=== PATIENT | female | born 1985 | race Two or more races ===

== ENCOUNTER 2021-07-22 13:52 | Inpatient (IN) | payer BC, OTHER ==
[~2021-07-22] VITALS: Ht 167.6 cm; Wt 115.0 kg
[2021-07-22] MEDS ORDERED: ONDANSETRON ODT 4 MG TAB PO ONE (14:15)
[2021-07-22 14:44] LABS: Basophils # (auto) 0 10 ^3/uL (0-0.2); Basophils % (auto) 0.5 % (0.0-2.0); Eosinophils # (auto) 0.1 10 ^3/uL (0-0.8); Eosinophils % (auto) 0.6 % (0.0-7.0); Hematocrit 37.1 % (36.0-46.0); Hemoglobin 12.2 g/dL (12.2-16.2); Lymphocytes # (auto) 1.9 10 ^3/uL (0.4-5.4); Lymphocytes % (auto) 18.3 % (10.0-50.0); Mean Corpuscular Hemoglobin 25.5 pg (28.0-32.0); Mean Corpuscular Hgb Conc. 32.9 g/dL (32.0-36.0); Mean Corpuscular Volume 77.7 fL (80.0-100.0); Monocytes # (auto) 0.6 10 ^3/uL (0-1.3); Monocytes % (auto) 6.1 % (0.0-12.0); Neutrophils # (auto) 7.8 10 ^3/uL (1.6-8.6); Neutrophils % (auto) 74.5 % (37.0-80.0); Nucleated Red Blood Cells % 0.1 %; Red Blood Cells 4.78 10^6/uL (4.0-5.20); Red Cell Distribution Width 15.3 % (11.8-14.3); White Blood Cell 10.5 10^3/uL (4.4-10.8)
[2021-07-22 14:57] LABS: Urine Bacteria FEW /hpf (None Seen); Urine Blood Negative /uL (Negative); Urine Hyaline Cast FEW /lpf (0 - 2); Urine Mucus FEW (None Seen); Urine Specific Gravity 1.021 (1.001-1.035); Urine WBC 89 /hpf (0 - 5)
[2021-07-22 14:57] LABS: Calcium 9.8 mg/dL (8.5-10.1); Potassium 4.3 mmol/L (3.5-5.1)
[2021-07-22 15:00] LABS: BUN/Creatinine Ratio 14.5; Bilirubin, Total 0.4 mg/dL (0.2-1.0); Total Protein 7.2 g/dL (6.4-8.2)
[2021-07-22] MEDS ORDERED: PANTOPRAZOLE 40 MG/10 ML VIAL INJ IV ONE (15:30)
[2021-07-22] MEDS ORDERED: ONDANSETRON HCL 4 MG/2 ML VIAL IV ONE (15:30)
[2021-07-22] MEDS ORDERED: MORPHINE SULFATE 4 MG/ML SYR/VIAL IV ONE (15:30)
[2021-07-22] MEDS ORDERED: cefTRIAXone 1GM/50ML D5W 50 ML IV ONE (16:00)
[2021-07-22] MEDS ORDERED: SODIUM CHLORIDE 0.9% 1,000 ML IV SCH (21:30)
[2021-07-22] MEDS: metroNIDAZOLE 500MG/100ML 100 ML IV SCH (22:24)
[2021-07-23] MEDS: MORPHINE SULFATE INJECTION 2 MG/ML SYRG IV PRN ×5 (00:12→21:46)
[2021-07-23] MEDS: ONDANSETRON HCL 4 MG/2 ML VIAL IV PRN ×2 (00:13→14:45)
[2021-07-23] MEDS ORDERED: NORPTMEDS (06:45)
[2021-07-23] MEDS: metroNIDAZOLE 500MG/100ML 100 ML IV SCH ×3 (06:49→21:45)
[2021-07-23 09:00] VITALS: BP 156/90
[2021-07-23 09:30] LABS: INR 1.05 (0.9-1.15); Partial Thromboplastin Time 27.9 sec (23.6-33.0)
[2021-07-23] MEDS: PANTOPRAZOLE 40 MG/10 ML VIAL INJ IV SCH (11:28)
[2021-07-23] MEDS: cefTRIAXone 1GM/50ML D5W 50 ML IV SCH (11:30)
[2021-07-23 11:52] LABS: Basophils # (auto) 0 10 ^3/uL (0-0.2); Hemoglobin 12.2 g/dL (12.2-16.2)
[2021-07-23 11:55] LABS: Basophils % (auto) 0.5 % (0.0-2.0); Eosinophils # (auto) 0 10 ^3/uL (0-0.8); Eosinophils % (auto) 0.4 % (0.0-7.0); Hematocrit 36.9 % (36.0-46.0); Lymphocytes # (auto) 1.3 10 ^3/uL (0.4-5.4); Lymphocytes % (auto) 13.4 % (10.0-50.0); Mean Corpuscular Hemoglobin 25.6 pg (28.0-32.0); Mean Corpuscular Hgb Conc. 33.1 g/dL (32.0-36.0); Mean Corpuscular Volume 77.4 fL (80.0-100.0); Monocytes # (auto) 0.7 10 ^3/uL (0-1.3); Monocytes % (auto) 7.1 % (0.0-12.0); Neutrophils # (auto) 7.9 10 ^3/uL (1.6-8.6); Neutrophils % (auto) 78.6 % (37.0-80.0); Red Blood Cells 4.77 10^6/uL (4.0-5.20)
[2021-07-23 12:20] LABS: Albumin 3.5 g/dL (3.4-5.0); Calcium 9.3 mg/dL (8.5-10.1); Potassium 4.4 mmol/L (3.5-5.1)
[2021-07-23 12:25] LABS: BUN/Creatinine Ratio 10.7; Bilirubin, Total 0.6 mg/dL (0.2-1.0); Total Protein 6.6 g/dL (6.4-8.2)
[2021-07-23 13:00] VITALS: BP 128/89
[2021-07-23 17:00] VITALS: BP 153/75
[2021-07-23 22:00] VITALS: BP 137/77
[2021-07-23] MEDS: D5W/LACTATED RINGERS 1,000 ML IV SCH ×2 (23:30→23:50)
[2021-07-24] MEDS: metroNIDAZOLE 500MG/100ML 100 ML IV SCH ×3 (05:38→22:03)
[2021-07-24] MEDS: MORPHINE SULFATE INJECTION 2 MG/ML SYRG IV PRN ×3 (05:55→19:07)
[2021-07-24] MEDS ORDERED: ceFAZolin 1GM/50ML 100 ML IV ONE (08:27)
[2021-07-24] MEDS ORDERED: ceFAZolin 1GM/50ML 50 ML IV ONE (08:31)
[2021-07-24] MEDS ORDERED: NEOSTIGMINE 1 MG/ML INJ (10mg/10ML VIAL) ONE (08:44)
[2021-07-24] MEDS ORDERED: DexAMETHasone SOD PHOS 10MG/1ML VIAL INJ ONE (08:44)
[2021-07-24] MEDS ORDERED: fentaNYL CITRATE 100 MCG/2 ML VL ONE (08:44)
[2021-07-24] MEDS ORDERED: ONDANSETRON HCL 4 MG/2 ML VIAL ONE (08:44)
[2021-07-24] MEDS ORDERED: GLYCOPYRROLATE 0.2 MG/ML 1ML VIAL ONE (08:44)
[2021-07-24] MEDS ORDERED: PROPOFOL 10 MG/ML 20 ML IV ONE (08:44)
[2021-07-24] MEDS ORDERED: MIDAZOLAM HCL 2MG/2ML 2ml VIAL (1mg/ml) ONE (08:44)
[2021-07-24] MEDS ORDERED: ROCURONIUM 10MG/ML 10ML VIAL IV ONE (08:44)
[2021-07-24] MEDS ORDERED: MEPERIDINE HCL (25 MG/ML) 1ML VIAL ONE (08:44)
[2021-07-24] MEDS ORDERED: METOCLOPRAMIDE HCL 5MG/ml INJ 2ml VIAL IV PRN (08:45)
[2021-07-24] MEDS ORDERED: HYDROmorphone HCL 2 MG/ML VL IV PRN (08:45)
[2021-07-24] MEDS ORDERED: KETOROLAC TROMETH 30 MG/ML 1ML VIAL IV ONE (08:45)
[2021-07-24] MEDS ORDERED: MORPHINE SULFATE 4 MG/ML SYR/VIAL IV PRN (08:45)
[2021-07-24] MEDS: cefTRIAXone 1GM/50ML D5W 50 ML IV SCH (09:00)
[2021-07-24] MEDS: PANTOPRAZOLE 40 MG/10 ML VIAL INJ IV SCH (10:00)
[2021-07-24 12:30] VITALS: BP 136/74
[2021-07-24] MEDS: D5W/LACTATED RINGERS 1,000 ML IV SCH (13:29)
[2021-07-24 17:00] VITALS: BP 141/93
[2021-07-24 20:00] VITALS: BP 156/96
[2021-07-25] MEDS: D5W/LACTATED RINGERS 1,000 ML IV SCH (02:30)
[2021-07-25 05:00] VITALS: BP 134/62
[2021-07-25] MEDS: MORPHINE SULFATE INJECTION 2 MG/ML SYRG IV PRN (05:02)
[2021-07-25] MEDS: metroNIDAZOLE 500MG/100ML 100 ML IV SCH (05:28)
[2021-07-25 06:36] LABS: Eosinophils # (auto) 0 10 ^3/uL (0-0.8); Lymphocytes # (auto) 1.2 10 ^3/uL (0.4-5.4); Monocytes # (auto) 1.2 10 ^3/uL (0-1.3); Red Blood Cells 4.61 10^6/uL (4.0-5.20)
[2021-07-25 06:39] LABS: Basophils # (auto) 0.1 10 ^3/uL (0-0.2); Basophils % (auto) 0.4 % (0.0-2.0); Hematocrit 35.9 % (36.0-46.0); Hemoglobin 11.7 g/dL (12.2-16.2); Mean Corpuscular Hemoglobin 25.4 pg (28.0-32.0); Mean Corpuscular Hgb Conc. 32.8 g/dL (32.0-36.0); Mean Corpuscular Volume 77.7 fL (80.0-100.0); Monocytes % (auto) 9.1 % (0.0-12.0); Neutrophils % (auto) 81.5 % (37.0-80.0); Red Cell Distribution Width 15.1 % (11.8-14.3); White Blood Cell 13.5 10^3/uL (4.4-10.8)
[2021-07-25 09:00] VITALS: BP 134/86
[2021-07-25] MEDS ORDERED: PANT40TA2 PO (10:00)
[2021-07-25] MEDS ORDERED: LEVO-28 PO (10:00)
[2021-07-25] MEDS ORDERED: METR500T PO (10:00)
[2021-07-25] MEDS ORDERED: ONDA-144 PO (10:00)
[2021-07-25] MEDS: PANTOPRAZOLE 40 MG/10 ML VIAL INJ IV SCH (10:11)
[2021-07-25] MEDS: cefTRIAXone 1GM/50ML D5W 50 ML IV SCH (10:11)
== END 2021-07-25 12:00 | disposition home or self-care (01) | DRG 418 ==
LOC: ER 13:52 → OVERFLOW 21:21 → WEST WING 07-23 03:00
PROVIDERS: ADMIT Nurse Practitioner; ATTEND Internal Medicine Nephrology
PROC: 0FT44ZZ Resection of Gallbladder, Percutaneous Endoscopic Approach (ICD-10-PCS; principal; 2021-07-24 08:47)
DX: K80.12 Calculus of gallbladder with acute and chronic cholecystitis without obstruction (principal); N39.0 Urinary tract infection, site not specified; Z68.41 Body mass index [BMI] 40.0-44.9, adult; I10 Essential (primary) hypertension; E66.01 Morbid (severe) obesity due to excess calories; R82.71 Bacteriuria; Z20.822 Contact with and (suspected) exposure to COVID-19
CPT/HCPCS: 36415; 76705; 78226; 80053; 81001; 82150; 82247; 83690; 84702; 85025; 85610; 85730; 86850; 86900; 86901; 87426; 96365; 96375; C9113; G0378; J0690; J0696; J1100; J2250; J2405; J2704; J3490; Q0162

== ENCOUNTER 2025-03-21 12:04 | Emergency (ER) | payer SELFPAY ==
[~2025-03-21] VITALS: Ht 167.6 cm; Wt 115.0 kg
[~2025-03-21 12:04] MED LIST: LEVO500T91 PO; METR500T PO; NORPTMEDS; ONDA-144 PO; PANT40TA2 PO
[2025-03-21 12:06] VITALS: TEMP 97.8
[2025-03-21 12:30] VITALS: BP 164/84; PULSE 74; RESP 20; O2SAT 100
--- NOTE | 2025-03-21 12:36 | ED.PDOC ---
History of Present Illness HPI Comments A 39-YEAR-OLD FEMALE WITH NO SIGNIFICANT PMHX WHO PRESENTS TO THE ED FOR THE C/C OF NONRADIATING RIGHT LOWER SIDED BACK PAIN. PATIENT STATES THAT HER SYMPTOMS STARTED YESTERDAY AFTERNOON, AND HAS SINCE FOUND NO ALLEVIATING FACTORS. MOVEMENT AND PHYSICAL ACTIVITY INCREASES RIGHT LOWER BACK PAIN. RIGHT LOWER BACK PAIN RADIATES TO LEFT LOWER BACK. PATIENT DOES NOTE THAT SHE MOVES AROUND OFTEN FREQUENTLY AT WORK. PATIENT DENIES ANY DIARRHEA, ABDOMINAL PAIN, URINARY SYMPTOMS, OR ANY OTHER ASSOCIATED FACTORS, OR MODIFIERS AT THIS TIME. PT IS ALERT, ORIENTATION X4 WITH NORMAL GAIT. Chief Complaint: Back Pain Time Seen by MD: 12:32 Primary Care Provider: OSKAR PMD Reviewed Notes: Nurses Notes, Medications, Allergies Allergies: Coded Allergies: NO KNOWN ALLERGIES (Unverified , 07/22/21) Home Meds Active Scripts Sulfamethoxazole W/Trimethopri (Bactrim Ds Tablet) 1 Tab Tb, 1 TAB PO BID for 7 Days, #14 TAB Prov:EHSAN ERICKSON 03/21/25 Ibuprofen (Ibuprofen) 800 Mg Tab, 1 TAB PO TID, #30 TAB Prov:EHSAN ERICKSON 03/21/25 Pantoprazole Sodium Sesquihydr (Protonix) 40 Mg Tab, 40 MG PO DAILY, #30 TAB Prov:MUSTAPHA BLACKMON MD 07/25/21 Ondansetron (Zofran) 4 Mg Tab, 1 TAB PO Q6HP PRN, #20 TAB prn for nausea Prov:MUSTAPHA BLACKMON MD 07/25/21 Metronidazole (Flagyl) 500 Mg Tab, 500 MG PO Q8H for 5 Days, #15 TAB Prov:MUSTAPHA BLACKMON MD 07/25/21 Levofloxacin Hemihydrate (LEVOFLOXACIN) 500 Mg Tab, 1 TAB PO DAILY, #5 TAB Prov:MUSTAPHA BLACKMON MD 07/25/21 Reported Medications No Reported Medication (NO REPORTED MEDICATION) Ea PATIENT HAS NO REPORTED MEDICATIONS 07/23/21 Information Source: Patient Mode of Arrival: Ambulatory Severity: Moderate Timing: Hours Duration: Since onset, Hours Prehospital treatment: None Medication Refill: For: Other (RIGHT LOWER BACK TO LEFT LOWER BACK ) Past Medical History PAST MEDICAL HISTORY: Denies Surgical History: BTL, [employer] History: No Pertinent [employer] History Family History Family History: Family hx of heart truman Social History Smoker: Non-Smoker Alcohol: Occasionally Drugs: Denies Drug Use Lives In: Home Constitutional: denies: chills, diaphoresis, fatigue, fever, malaise, sweats, weakness, others EENTM: denies: blurred vision, double vision, ear bleeding, ear discharge, ear drainage, ear pain, ear ringing, eye pain, eye redness, hearing loss, mouth pain, mouth swelling, nasal discharge, nose bleeding, nose congestion, nose pain, photophobia, tearing, throat pain, throat swelling, voice changes, others Respiratory: denies: cough, hemoptysis, orthopnea, SOB at rest, shortness of breath, SOB with excertion, stridor, wheezing, others Cardiovascular: denies: chest pain, dizzy spells, diaphoresis, Dyspnea on exertion, edema, irregular heart beat, left arm pain, lightheadedness, palpitations, PND, syncope, others Gastrointestinal: denies: abdomen distended, abdominal pain, blood streaked bowels, constipated, diarrhea, dysphagia, difficulty swallowing, hematemesis, melena, nausea, poor appetite, poor fluid intake, rectal bleeding, rectal pain, vomiting, others Genitourinary: denies: abnormal vagina bleeding, burning, dyspareunia, dysuria, flank pain, frequency, hematuria, incontinence, pain, , vagina discharge, urgency, others Neurological: denies: dizziness, fainting, headache, left sided numbness, left sided weakness, numbness, paresthesia, pre-existing deficit, right sided numbness, right sided weakness, seizure, speech problems, tingling, tremors, weakness, others Musculoskeletal: reports: back pain, muscle pain; denies: gout, joint pain, joint swelling, muscle stiffness, neck pain, others Integumetry: denies: bruises, change in color, change in hair/nails, dryness, laceration, lesions, lumps, rash, wounds, others Allergic/Immunocompromised: denies: Difficulty Healing, Frequent Infections, Hives, Itching, others Hematologic/Lymphatic: denies: anemia, blood clots, easy bleeding, easy b ruising, swollen glands, others Endocrine: denies: excessive hunger, excessive sweating, excessive thirst, excessive urination, flushing, intolerance to cold, intolerance to heat, unexplained weight gain, unexplained weight loss, others Psychiatric: denies: anxiety, bipolar disorder, depression, hopeless, panic disorder, schizophrenia, sleepless, suicidal, others All Other Systems: Reviewed and Negative Physical Exam General Appearance: No Apparent Distress, Obese HEENT: Normal ENT Inspection, PERRL/EOMI, Pharynx Normal, TMs Normal Neck: Full Range of Motion, Non-Tender, Normal, Normal Inspection Respiratory: Chest Non-Tender, Lungs Clear, No Accessory Muscle Use, No Respiratory Distress, Normal Breath Sounds Cardiovascular: No Edema, No JVD, No Murmur, No Gallop, Normal Peripheral Pulses, Regular Rate/Rhythm Breast Exam: Deferred Gastrointestinal: No Organomegaly, Non Tender, No Pulsatile Mass, Normal Bowel Sounds, Soft Genitalia: Deferred Pelvic: Deferred Rectal: Deferred Extremities: No calf tenderness, Normal capillary refill, Normal inspection, Normal range of motion, Non-tender, No pedal edema Musculoskeletal : Location: Bilateral Extremity Location: Back Apperance: Tenderness (AND MUSCLE SPASM ON LOWER BACK, NO BONY TENDERNESS, SWELLING AND DEFORMITY, NO CVA TENDERNESS. 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 Was a procedure done?: No Differential Dx Considerations may include: PARASPINAL PAIN, SCIATICA, MUSCLE STRAIN, ACUTE CYSTITIS X-Ray, Labs, Meds, VS Vital Signs Date Time Temp Pulse Resp B/P (MAP) Pulse Ox O2 Delivery O2 Flow Rate FiO2 03/21/25 12:30 74 20 100 Room Air 03/21/25 12:30 76 18 164/84 (110) 100 03/21/25 12:06 97.8 68 18 165/78 98 97.8 Lab Test 03/21/25 13:09 Range/Units Urine Color Brown H Yellow Urine Clarity Ex.turbid Clear Urine pH 5.5 5.0-9.0 Urine Specific [place] 1.028 1.001-1.035 Urine Protein 1+ H Negative Urine Ketones 1+ H Negative Urine Blood 3+ H Negative /uL Urine Nitrite Negative Negative Urine Bilirubin Negative Negative Urine Urobilinogen Normal Negative mg/dL Urine Leukocyte Esterase 2+ Negative /uL Urine RBC 6485 0 - 4 /hpf Urine Microscopic WBC 9 H 0-5 /HPF Urine Squamous Epithelial Cells Few <5 /hpf Urine Bacteria None seen None Seen /hpf Urine Mucus Few None Seen Urine Glucose Normal Normal mg/dL Current Medications Medications (Trade) Dose Ordered Sig/Ria Route Start Time Stop Time Status Last Admin Ketorolac Tromethamine (Toradol Injection) 60 mg ONCE ONCE IM 03/21/25 12:45 03/21/25 12:46 DC 03/21/25 12:51 X-Ray, Labs, Meds, VS Comment EXTERNAL MEDICAL RECORDS REVIEWED: [NONE] INDEPENDENT HISTORIANS: [NONE] SOCIAL DETERMINANTS OF HEALTH: [NONE] LABS ORDERED: UA REVIEWED AND INTERPRETED RESULTS: MILD UTI, BLOOD IN THE URINE, PT IS ON MENSTRUAL PERIOD. IMAGING ORDERED: NONE TREATMENTS ORDERED: TORADOL 60 MG PROCEDURES PERFORMED: NONE CRITICAL CARE TIME: NONE I HAVE DISCUSSED THE PATIENT WITH THE ATTENDING PHYSICIAN (SANDRA) AND S/HE AGREES WITH THE PATIENT'S PLAN OF CARE AND DISPOSITION. BASED ON HISTORY OF PRESENT ILLNESS, AND PHYSICAL EXAM, PATIENT WILL BE DISCHARGED HOME. DISCUSSED PLAN FOR DISCHARGE HOME WITH RX [DENISE DS]. MEDICATION WARNINGS GIVEN. SHARED DECISION MAKING: DISCUSSED WITH PATIENT THAT THEIR WORKUP WAS NORMAL. PATIENT INSTRUCTED TO FOLLOW UP WITH PRIMARY CARE PROVIDER IN 1-2 DAYS FOR RE- EVALUATION OF SYMPTOMS. PATIENT VERBALIZES UNDERSTANDING TO RETURN TO ED FOR NEW OR WORSENING SYMPTOMS OR IF FOLLOW UP WITH PCP CANNOT BE OBTAINED. PATIENT FEELS COMFORTABLE GOING HOME AT THIS TIME. ALL QUESTIONS ADDRESSED AT TIME OF DISCHARGE. Time of 1ST Reevaluation: 13:00 Reevaluation 1ST: Improved Patient Education/Counseling: Diagnosis, Treatment, Need For Follow Up Family Education/Counseling: Diagnosis, Treatment, No Family Present Medical Screening: No EMC Exist At This Time SEPSIS Sepsis Screen Date sepsis recognized/suspect: Mar 21, 2025 Time Sepsis recognized/suspect: 1206 Recent Procedure: No On Antibiotic Therapy: No Respiratory Rate >20: No Heart Rate >90: No Temp<36 C (96.8 F) or >38.3 C: No SBP <90 or MAP <65 mmHG: No New Acute Mental Status Change: No Is the patient on CPAP, BIPAP,: No Vital Signs Date Time Temp Pulse Resp B/P (MAP) Pulse Ox O2 Delivery O2 Flow Rate FiO2 03/21/25 12:30 74 20 100 Room Air 03/21/25 12:30 76 18 164/84 (110) 100 03/21/25 12:06 97.8 68 18 165/78 98 97.8 Medications Medications Dose Ordered Sig/Ria Route Start Time Stop Time Status Last Admin Dose Admin Ketorolac Tromethamine 60 mg ONCE ONCE IM 03/21/25 12:45 03/21/25 12:46 DC 03/21/25 12:51 Departure 1 Departure Time of Disposition: 13:45 Impression: Primary Impression: Low back strain Qualified Codes: S39.012A - Strain of muscle, fascia and tendon of lower back, initial encounter Additional Impression: Acute cystitis Qualified Codes: N30.01 - Acute cystitis with hematuria Disposition: HOME / SELF CARE / HOMELESS Condition: Stable Additional Instructions: FOLLOW-UP WITH PCP IN 1 TO 2 DAYS. TAKE MEDICATIONS PRESCRIBED. RETURN TO ED FOR ANY NEW OR WORSENING SYMPTOMS. e-Prescriptions Sulfamethoxazole W/Trimethopri (Bactrim Ds Tablet) 1 Tab Tb 1 TAB PO BID for 7 Days, #14 TAB Prov: EHSAN ERICKSON 03/21/25 Ibuprofen (Ibuprofen) 800 Mg Tab 1 TAB PO TID, #30 TAB Prov: EHSAN ERICKSON 03/21/25 Discharged With: Self Critical Care Note Critical Care Time?: No Stability Stability form required: No Heart Score Heart Score: Heart Score Response (Comments) Value History N/A 0 EKG N/A 0 Age N/A 0 Risk Factors N/A 0 Troponin N/A 0 Total 0 I personally scribed for EHSAN ERICKSON ([email or web address]) on 03/21/25 at 12:36. Electronically submitted by Choco Small ([email or web address]). EHSAN ERICKSON Mar 21, 2025 12:36
[2025-03-21] MEDS: KETOROLAC TROMETH 60MG/2ML VIAL IM ONE (12:51)
[2025-03-21 13:34] LABS: Urine Protein, UAD 1+ (Negative)
[2025-03-21] MEDS ORDERED: BACDST PO (13:43)
[2025-03-21] MEDS ORDERED: IBUP-1456 PO (13:43)
== END 2025-03-21 13:53 | disposition home or self-care (01) ==
LOC: ER 12:04
DX: S39.012A Strain of muscle, fascia and tendon of lower back, initial encounter (principal); N30.00 Acute cystitis without hematuria; F10.90 Alcohol use, unspecified, uncomplicated; Z98.51 Tubal ligation status; Z79.899 Other long term (current) drug therapy; Z79.1 Long term (current) use of non-steroidal anti-inflammatories (NSAID); X58.XXXA Exposure to other specified factors, initial encounter; Y93.89 Activity, other specified; Y92.89 Other specified places as the place of occurrence of the external cause; Y99.8 Other external cause status; Y90.9 Presence of alcohol in blood, level not specified
CPT/HCPCS: 81001; 96372; 99283; J1885